=== PATIENT | male | born 1960 | race Caucasian/White ===

== ENCOUNTER 2016-07-09 09:08 | Inpatient (IN) | payer BC ==
--- NOTE | 2016-07-09 09:36 | PDOC ---
History of Present Illness - General Chief Complaint: Respiratory Stated Complaint: COUGH&COLD SX, LF KNEE, TIFFANY ANKLE PAIN Time Seen by Provider: 07/09/16 09:19 History Source: Patient Exam Limitations: No Limitations - History of Present Illness Initial Comments: 55 yo M hx kidney stones, possibly gout (patient is uncertain) presents with B/ L ankle pain and L knee pain. He had a recent URI with cough, fever, and congestion, and noted that he started to get R ankle pain as he was recovering. He was limping to compensate for the pain, then developed pain on the left side , first in the ankle, now in the knee. He notes swelling and tenderness to both the ankle and the knee, with some redness in the ankle and big toe on the left side. Past History - Past Medical History Allergies/Adverse Reactions: Allergies Allergy/AdvReac Type Severity Reaction Status Date / Time No Known Allergies Allergy Verified 07/09/16 09:10 Home Medications: Ambulatory Orders NK [No Known Home Medication] 07/09/16 Disorders: Yes (KIDNEY STONES) Kidney Stones: Yes - Surgical History Orthopedic Surgery: Yes (BILATERAL KNEES) - Psycho/Social/Smoking Cessation Hx Anxiety: No Suicidal Ideation: No Smoking Status: Yes Smoking History: Former smoker Have you smoked in the past 12 months: Yes Number of Cigarettes Smoked Daily: 1 Information on smoking cessation initiated: Yes 'Breaking Loose' booklet given: 07/09/16 Hx Alcohol Use: Yes (occasional) Substance Use Type: None Hx Substance Use Treatment: No Review of Systems - Review of Systems Able to Perform ROS?: Yes Comments:: GENERAL/CONSTITUTIONAL: No fever or chills. No weakness. HEAD, EYES, EARS, NOSE AND THROAT: No change in vision. No ear pain or discharge. No sore throat. CARDIOVASCULAR: No chest pain or shortness of breath. RESPIRATORY: No cough, wheezing, or hemoptysis. GASTROINTESTINAL: No nausea, vomiting, diarrhea or constipation. GENITOURINARY: No dysuria, frequency, or change in urination. MUSCULOSKELETAL: No muscle swelling or pain. No neck or back pain. +Pain and swelling to both ankles and the L knee. SKIN: No rash NEUROLOGIC: No headache, vertigo, loss of consciousness, or change in strength/ sensation. ENDOCRINE: No increased thirst. No abnormal weight change. HEMATOLOGIC/LYMPHATIC: No anemia, easy bleeding, or history of blood clots. ALLERGIC/IMMUNOLOGIC: No hives or skin allergy. *Physical Exam - Vital Signs Last Vital Signs Temp Pulse Resp BP Pulse Ox 99.4 F 88 16 133/75 96 07/09/16 09:08 07/09/16 09:08 07/09/16 09:08 07/09/16 09:08 07/09/16 09:08 - Physical Exam Comments: GENERAL: Awake, alert, and fully oriented, in no acute distress HEAD: No signs of trauma EYES: PERRLA, EOMI, sclera anicteric, conjunctiva clear ENT: Auricles normal inspection, hearing grossly normal, nares patent, oropharynx clear without exudates. Moist mucosa NECK: Normal ROM, supple, no lymphadenopathy, JVD, or masses LUNGS: Breath sounds equal, clear to auscultation bilaterally. No wheezes, and no crackles HEART: Regular rate and rhythm, normal S1 and S2, no murmurs, rubs or gallops ABDOMEN: Soft, nontender, normoactive bowel sounds. No guarding, no rebound. No masses EXTREMITIES: L ankle and dorsal foot with nonpitting edema. +L ankle effusion. + Erythema over the L 1st MTP joint. R ankle swelling with trace effusion. L knee with mod effusion, diffuse tenderness, no erythema, no warmth. Remainder of extremities with normal range of motion. No clubbing or cyanosis. No cords. NEUROLOGICAL: Cranial nerves II through XII grossly intact. Normal speech. Motor and sensation intact. +Antalgic gait. SKIN: Warm, Dry, normal turgor, no rashes or lesions noted. Procedures - Arthrocentesis Indication: Crystals (Gout/Psuedogout, Reduce Pain, Steriod Injection Arthrocentesis Site: left: knee Flexion: <20 degrees Betadine Prep: Yes Sterile Dressing Applied: Yes Dry Tap: No Fluid Color: Straw colored (25 mL blood-tinged, straw-colored fluid) Anesthesia: other (2 mL 1% lidocaine and 40 mg kenalog) Needle Size (guage): 18g Complications: No Heart Score/ECG Review - ECG Impressions Comment:: EKG read 14:01- NSR 74 bpm, incomplete RBBB, +LVH Medical Decision Making - Medical Decision Making 07/09/16 11:07 Arthrocentesis- Area was prepped with betadine, then a sterile drape was placed. Area was anesthetized locally using 1% lidocaine. After the area was sufficiently anesthetized, an 18G needle was used to access the joint space from a medial approach. Fluid aspirated successfully from the L knee- 25 mL total. Fluid was viscous, blood-tinged, straw-colored fluid. Sent to lab for analysis. 07/09/16 13:38 Arthrocentesis results d/w Dr. Valenzuela. I will admit for IV abx, washout. 07/09/16 13:[address] Garcia, who covers Dr. Uribe. He admits to hospitalist at [facility]. *DC/Admit/Observation/Transfer Diagnosis at time of Disposition: Knee pain Qualifiers: Laterality: left Chronicity: acute Qualified Code(s): M25.562 - Pain in left knee Septic joint of left knee joint Qualifiers: Septic arthritis organism: due to unspecified organism Qualified Code(s): M00.9 - Pyogenic arthritis, unspecified - Discharge Dispostion Condition at time of disposition: Stable Admit: Yes - Referrals Referrals: Oseas Uribe [Primary Care Provider] -
[2016-07-09] MEDS ORDERED: predniSONE 20 MG TABLET (UD) PO ONE (09:38)
[2016-07-09] MEDS ORDERED: IBUPROFEN 600 MG TABLET (FP) PO ONE ×2 (09:38→09:40)
[2016-07-09] MEDS ORDERED: predniSONE 20 MG TABLET (UD) ONE (09:41)
[2016-07-09] MEDS ORDERED: TRIAMCINOLONE HEXACETONIDE 20 MG/1 ML VIAL IAR ONE (10:58)
[2016-07-09] MEDS ORDERED: LIDOCAINE HCL 1%, 10 MG/ML (50 mL VIAL) SQ ONE (11:01)
[2016-07-09] MEDS ORDERED: LIDOCAINE HCL 1%, 10 MG/ML (20ML VIAL) ONE (11:03)
[2016-07-09 13:32] LABS: GLUCOSE,SYNOVIAL FLUID 8 mg/dL
[2016-07-09] MEDS ORDERED: VANCOMYCIN 1,000 MG in DEXTROSE 5%-WATER - 250 ML IVPB ONE (13:37)
[2016-07-09] MEDS ORDERED: CEFTRIAXONE 2 GM in DEXTROSE 5%-WATER - 100 ML IVPB ONE (13:37)
[2016-07-09 13:54] LABS: SYNOVIAL FLUID LYMPHOCYTES 2 %; SYNOVIAL FLUID NEUTROPHILS 98 %
[2016-07-09 13:55] LABS: CRYSTALS,SYNOVIAL FLUID RARE
[2016-07-09] MEDS ORDERED: VANCOMYCIN 1,000 MG VIAL (RESTRICTED TO ID ONLY) ONE (14:11)
[2016-07-09] MEDS ORDERED: cefTRIAXone SODIUM 1 GM VIAL ONE ×2 (14:11→14:19)
[2016-07-09 14:33] LABS: BASOPHIL 1.6 % (0-2.0); MCH 28.9 pg (25.7-33.7); MEAN CELL VOLUME 85.1 fl (80-96); MEAN PLT VOLUME 9.5 fl (7.5-11.1); PLATELET COUNT 286 K/MM3 (134-434); RDW 12.2 % (11.9-15.9); WHITE BLOOD COUNT 13.9 K/mm3 (4.0-10.0)
[2016-07-09 14:38] LABS: INR 1.23 (0.82-1.09); PROTHROMBIN TIME (PATIENT) 13.7 SEC (10.2-13.0)
[2016-07-09 14:42] LABS: ALBUMIN 3.5 g/dl (3.5-5.0); ALK PHOS 48 U/L (32-92); ANION GAP 10 (8-16); BILIRUBIN,TOTAL 1.2 mg/dl (0.2-1.0); CALCIUM 9.3 mg/dl (8.4-10.2); CO2 28 mmol/L (22-28); GLUCOSE,RANDOM 151 mg/dl (74-106); SGOT/AST 17 U/L (10-42); SGPT/ALT 18 U/L (10-40); TOT PROT 7.4 g/dl (6.4-8.3); URIC ACID 8.5 mg/dl (2.6-7.2)
[2016-07-09] MEDS ORDERED: ONDANSETRON 4 MG/2 ML VIAL IVPB PRN (15:20)
[2016-07-09] MEDS ORDERED: ACETAMINOPHEN 325 MG TABLET (FP) PO PRN (15:20)
[2016-07-09 15:53] LABS: TOTAL PROTEIN,SYNOVIAL FLUID 5 gm/dL
[2016-07-09 16:31] VITALS: BMI 28.9
--- NOTE | 2016-07-09 18:08 | PN ---
Progress Note (short form) - Note Progress Note: ID Consult dictated Septic arthritis v. gout L knee Possible polyarticular arthritis Await synovial fluid c/s Check ESR CRP PAPO RF Lyme Parvovirus Empiric vanco/zosyn
[2016-07-09] MEDS: VANCOMYCIN 1 GRAM (PRE-DOCKED) 250 ML IVPB SCH (18:15)
[2016-07-09] MEDS ORDERED: PIPERACILLIN/TAZOB 3.375 GM 50 ML IVPB ONE (18:22)
[2016-07-09] MEDS: PIPERACILLIN/TAZOB 3.375 GM 50 ML IVPB SCH (18:28)
--- NOTE | 2016-07-09 21:19 | HP ---
CHIEF COMPLAINT: L-knee pain, swelling, Bilateral ankle pain PCP: Dr. Delio Uribe HISTORY OF PRESENT ILLNESS: This is a 55 y/o male with a past medical history Renal Colic, Gout. Who presents to the emergency department with pain to bilateral ankles, limited mobility, L-knee pain and swelling x 1-2 weeks. Patient reports recent Flu-like symptoms x several days- resolved. Patient reports "rolling" his R-ankle, ignoring it. He then reports noting that his left foot and left knee was swollen , limited ROM/mobility, with erythema to his left foot. Patient reports he was "sweating" more at night, unsure if he had a temp. Patient denies SOB, dizziness , CP, AP, N/V/D, constipation, dysuria. 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[employer]) Family History: Father: Cardiac, Rheumatic Fever, Stroke, age 59 Mother: No medical conditions, alive Allergies No Known Allergies Allergy (Verified 07/09/16 09:10) HOME MEDICATIONS: Home Medications Medication Instructions Recorded NK [No Known Home Medication] 07/09/16 REVIEW OF SYSTEMS CONSTITUTIONAL: diaphoresis, loss of appetite Absent: fever, chills, generalized weakness, malaise, weight change HEENT: Absent: rhinorrhea, nasal congestion, throat pain, throat swelling, difficulty swallowing, mouth swelling, ear pain, eye pain, visual changes CARDIOVASCULAR: peripheral edema Absent: chest pain, syncope, palpitations, irregular heart rate, lightheadedness RESPIRATORY: Absent: cough, shortness of breath, dyspnea with exertion, orthopnea, wheezing, stridor, hemoptysis GASTROINTESTINAL: Absent: abdominal pain, abdominal distension, nausea, vomiting, diarrhea, constipation, melena, hematochezia GENITOURINARY: Absent: dysuria, frequency, urgency, hesitancy, hematuria, flank pain, genital pain MUSCULOSKELETAL: myalgia, arthralgia, joint swelling Absent: back pain, neck pain SKIN: Absent: rash, itching, pallor HEMATOLOGIC/IMMUNOLOGIC: Absent: easy bleeding, easy bruising, lymphadenopathy, frequent infections ENDOCRINE: Absent: unexplained weight gain, unexplained weight loss, heat intolerance, cold intolerance NEUROLOGIC: Absent: headache, focal weakness or paresthesias, dizziness, unsteady gait, seizure, mental status changes, bladder or bowel incontinence PSYCHIATRIC: Absent: anxiety, depression, suicidal or homicidal ideation, hallucinations. PHYSICAL EXAMINATION Vital Signs - 24 hr 07/09/16 07/09/16 15:30 20:46 Temperature 97.4 F L Pulse Rate [ 67 Left Apical] Respiratory 18 18 Rate Blood Pressure 113/62 [Left Arm] O2 Sat by Pulse 99 99 Oximetry (%) GENERAL: Awake, alert, and fully oriented, in no acute distress. HEAD: Normal with no signs of trauma. EYES: Pupils equal, round and reactive to light, extraocular movements intact, sclera anicteric, conjunctiva clear. No lid lag. EARS, NOSE, THROAT: Ears normal, nares patent, oropharynx clear without exudates. Moist mucous membranes. NECK: Normal range of motion, supple without lymphadenopathy, JVD, or masses. LUNGS: Breath sounds equal, clear to auscultation bilaterally. No wheezes, and no crackles. No accessory muscle use. HEART: Regular rate and rhythm, normal S1 and S2 without murmur, rub or gallop. ABDOMEN: Soft, nontender, not distended, normoactive bowel sounds, no guarding, no rebound, no masses. No hepatomegaly or splenomegaly. MUSCULOSKELETAL: Normal range of motion at all joints. No bony deformities. + tenderness left knee, left ankle. No CVA tenderness. UPPER EXTREMITIES: 2+ pulses, warm, well-perfused. No cyanosis. No clubbing. Cap refill <2 seconds. No peripheral edema. LOWER EXTREMITIES: 2+ pulses, warm, well-perfused. No calf tenderness. +trace peripheral edema to LLE. NEUROLOGICAL: Cranial nerves II-XII intact. Normal speech. Gait not observed. PSYCHIATRIC: Cooperative. Good eye contact. Appropriate mood and affect. SKIN: Warm, dry, normal turgor, +erythema to left foot. No rashes or lesions noted. Laboratory Results - last 24 hr 07/09/16 07/09/16 07/09/16 11:20 11:20 14:00 WBC 13.9 H RBC 5.12 Hgb 14.8 Hct 43.6 MCV 85.1 MCHC 34.0 RDW 12.2 Plt Count 286 MPV 9.5 Neutrophils % 87.0 H Lymphocytes % 7.1 L Monocytes % 4.3 Eosinophils % 0.0 Basophils % 1.6 INR Sodium Potassium Chloride Carbon Dioxide Anion Gap BUN Creatinine Creat Clearance w eGFR Random Glucose Uric Acid Calcium Total Bilirubin AST ALT Alkaline Phosphatase Total Protein Albumin Synovial Source Left knee Synovial WBC 97,756 Synovial RBC 37,568 Synovial Neutrophils 98 Synovial Lymphocytes 2 Synovial Crystals Rare Synovial Glucose 8 Synovial Total Protein 5 Synovial LDH 816 Synovial Amylase 34 Blood Type Antibody Screen 07/09/16 07/09/16 07/09/16 14:00 14:00 14:00 WBC RBC Hgb Hct MCV MCHC RDW Plt Count MPV Neutrophils % Lymphocytes % Monocytes % Eosinophils % Basophils % INR 1.23 H Sodium 133 L Potassium 3.9 Chloride 95 L Carbon Dioxide 28 Anion Gap 10 BUN 24 H Creatinine 1.0 Creat Clearance w eGFR > 60 Random Glucose 151 H Uric Acid 8.5 H Calcium 9.3 Total Bilirubin 1.2 H AST 17 ALT 18 Alkaline Phosphatase 48 Total Protein 7.4 Albumin 3.5 Synovial Source Synovial WBC Synovial RBC Synovial Neutrophils Synovial Lymphocytes Synovial Crystals Synovial Glucose Synovial Total Protein Synovial LDH Synovial Amylase Blood Type A POSITIVE Antibody Screen Negative 07/09/16 14:10 WBC RBC Hgb Hct MCV MCHC RDW Plt Count MPV Neutrophils % Lymphocytes % Monocytes % Eosinophils % Basophils % INR Sodium Potassium Chloride Carbon Dioxide Anion Gap BUN Creatinine Creat Clearance w eGFR Random Glucose Uric Acid Calcium Total Bilirubin AST ALT Alkaline Phosphatase Total Protein Albumin Synovial Source Synovial WBC Synovial RBC Synovial Neutrophils Synovial Lymphocytes Synovial Crystals Synovial Glucose Synovial Total Protein Synovial LDH Synovial Amylase Blood Type A POSITIVE Antibody Screen ASSESSMENT/PLAN: This is a 55 y/o male PMHx of Renal Colic, Gout. Who presents to the ED with swollen and pain to B/L Ankle, L- Knee and L- Foot. Admitted for Septic Arthritis of Left Knee for further evaluation of their emergent condition. Plan: 1. Septic Arthritis vs Gout L Knee - Likely secondary to recent URI - Arthrocentesis L- knee showed- +WBC/RBCs - WBC 13.9 with Neutrophils 87 - Uric Acid 8.5 - Blood Cultures-pending - Rocephin given in ED - ID following, started on Vanco/Zosyn - Continue Vancomycin/Zosyn - Ortho following- OR in am for washout - NPO after midnight - IVF - Monitor vitals, CBC - Tylenol prn - Consider PT 2. Renal Colic - Hx Renal Stents 3. FEN - NS@100cc/hr - Replete lytes prn - NPO 4. DVT Prophylaxis - OOB - SCDs Code Status: Full Code Problem List - Problem (1) Septic joint of left knee joint Code(s): M00.9 - PYOGENIC ARTHRITIS, UNSPECIFIED Qualifiers: Septic arthritis organism: due to unspecified organism Qualified Code(s ): M00.9 - Pyogenic arthritis, unspecified (2) Knee pain Code(s): M25.569 - PAIN IN UNSPECIFIED KNEE Qualifiers: Laterality: left Chronicity: acute Qualified Code(s): M25.562 - Pain in left knee (3) History of renal colic Code(s): Z87.448 - PERSONAL HISTORY OF OTHER DISEASES OF URINARY SYSTEM (4) DVT prophylaxis Code(s): LAJ2899 - Visit type - Emergency Visit Emergency Visit: Yes ED Registration Date: 07/09/16 Care time: The patient presented to the Emergency Department on the above date and was hospitalized for further evaluation of their emergent condition. - New Patient This patient is new to me today: Yes Date on this admission: 07/09/16 - Critical Care Critical Care patient: No
[2016-07-10] MEDS: SODIUM CHLORIDE 1,000 ML IV SCH ×2 (00:52→18:07)
[2016-07-10] MEDS: PIPERACILLIN/TAZOB 3.375 GM 50 ML IVPB SCH ×4 (01:51→18:06)
[2016-07-10] MEDS: VANCOMYCIN 1 GRAM (PRE-DOCKED) 250 ML IVPB SCH ×2 (02:45→16:49)
--- NOTE | 2016-07-10 06:26 | CONS ---
DATE OF CONSULTATION: 07/09/2016 HISTORY OF PRESENT ILLNESS: The patient is a 55-year-old male with history of nephrolithiasis and history of gouty arthritis, evaluated for possible septic arthritis. Patient reports that several days ago, he had twisted his right ankle and had experienced some pain. He reports favoring his other leg. He subsequently developed swelling of the left ankle and had noted some erythema. Then, 24 hours prior to admission, he developed worsening left knee swelling and pain to the point that he was unable to ambulate. He presented to the emergency room where an arthrocentesis was performed and revealed many white blood cells. He denied any traumatic injury to his knee, no associated fever or chills. Of note, he states that his 3-year-old son at home had a recent febrile illness and had a rash. He reports his son was diagnosed with a strep infection. Patient gives a history of having gouty arthritis in the past which affected his right great toe. He denied any recent acute flares. He denies any recent febrile illness or respiratory tract symptoms. No history of tick bites. He denies history of connective tissue disorder. PAST MEDICAL HISTORY: Positive for nephrolithiasis and history of gouty arthritis. ALLERGIES: No known allergies. 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 He denies any injury. A former smoker, occasional EtOH. SYSTEMS REVIEW: Neurologic: No loss of consciousness, seizure activity, or focal weakness. Cardiac: Negative for chest pain or palpitations. Respiratory: Negative for cough or sputum production. Gastrointestinal: Negative for vomiting or diarrhea. Genitourinary: Negative for urinary tract infection. LABORATORY DATA: White count 13.9, 87 neutrophils, 7 lymphocytes, 4 monocytes, hematocrit 43.6, platelet count 286. BUN 84, creatinine 1.0. Arthrocentesis yielded synovial fluid which was described as straw-colored. White blood cell count 97,765, 98 neutrophils, 2 lymphocytes, red cells 37,568, crystals rare, glucose 8, protein 5, LDH 816. Gram stain and culture pending. Blood cultures are pending. X-ray of the foot showed degenerative changes, no acute pathology. X-ray of the knee showed suprapatellar effusion. PHYSICAL EXAMINATION: General: He is awake and alert. He is not acutely toxic-appearing. Vital signs: Temperature 97.4, blood pressure 113/62, pulse 67 and regular, respirations 18 per minute. HEENT: Sclerae anicteric. Heart: Heart sounds S1, S2. Lungs: Clear. Abdomen: Soft and nontender. Extremities: Positive for right knee effusion. No erythema or warmth. There is swelling of the left ankle and left foot with erythema present over the dorsal aspect of the toes. IMPRESSION: 1. Septic arthritis versus gouty arthritis, left knee. 2. Possible polyarticular arthritis. Etiology of acute arthritis not clear. There were rare crystals seen on Gram stain. Polyarticular arthritis in the setting of elevated uric acid and history of gout raises strong possibility of acute flare of gout arthritis. However, synovial fluid contained many white cells, predominantly neutrophils, low glucose, high LDH and protein, suggestive of a septic process. Await synovial fluid and blood culture results. Would obtain sedimentation rate, C-reactive protein, Lyme titer, parvovirus titer, PAPO, rheumatoid factor, empiric coverage of possible septic arthritis with vancomycin and Zosyn pending Gram stain and cultures. Would obtain orthopedic evaluation and consider rheumatology evaluation. Further recommendations pending cultures. Will follow. Thank you for the kind referral. CY SWAN M.D. [id number]
[2016-07-10 09:53] LABS: CALCIUM 9.3 mg/dl (8.4-10.2)
[2016-07-10 09:54] LABS: WHITE BLOOD COUNT 12.8 K/mm3 (4.0-10.0)
[2016-07-10 09:55] LABS: MCH 29.1 pg (25.7-33.7); MCHC 33.8 g/dl (32.0-35.9); MEAN CELL VOLUME 86.2 fl (80-96); MEAN PLT VOLUME 9.5 fl (7.5-11.1); NEUTROPHILS 85.8 % (42.8-82.8); PLATELET COUNT 313 K/MM3 (134-434); RDW 12.5 % (11.9-15.9)
--- NOTE | 2016-07-10 10:00 | OP ---
- Note: FULL CONSULTATION DICTATED IMP: GOUT AND SEPTIC ARTHRITIS LEFT KNEE PLAN: ABX, --> OR FOR WASH OUT OF KNEE
--- NOTE | 2016-07-10 10:08 | PN ---
Progress Note, Physician History of Present Illness: Reports significant improvement L knee/ ankle swelling and stiffness No pain on wt bearing No fever/ chills - Current Medication List Current Medications: Active Medications Acetaminophen (Tylenol -) 650 mg PO Q4H PRN PRN Reason: FEVER OR PAIN Sodium Chloride (Normal Saline -) 1,000 mls @ 100 mls/hr IV ASDIR [facility] Last Admin: 07/10/16 00:52 Dose: 100 mls/hr Vancomycin HCl (Vancomycin (Pre-Docked)) 250 mls @ 200 mls/hr IVPB BID@0300, 1500 [facility] Last Admin: 07/10/16 02:45 Dose: 200 mls/hr Piperacillin Sod/Tazobactam Sod (Zosyn 3.375gm Ivpb (Pre-Docked)) 50 mls @ 100 mls/hr IVPB Q8H-IV MARCUS PRN Reason: Protocol Last Admin: 07/10/16 09:14 Dose: 100 mls/hr Ondansetron HCl (Zofran Injection) 4 mg IVPB Q4H PRN PRN Reason: NAUSEA - Objective Vital Signs: Vital Signs Temperature 97.6 F 07/10/16 06:16 Pulse Rate 50 L 07/10/16 06:16 Respiratory Rate 20 07/10/16 06:16 Blood Pressure 117/67 07/10/16 06:16 O2 Sat by Pulse Oximetry (%) 99 07/10/16 06:16 Constitutional: Yes: No Distress Eyes: Yes: Conjunctiva Clear Cardiovascular: Yes: Regular Rate and Rhythm, S1, S2 Respiratory: Yes: CTA Bilaterally Gastrointestinal: Yes: Normal Bowel Sounds, Soft. No: Tenderness Extremities: Yes: Other (+ L knee effusion no erythema/ warmth less L ankle swelling no erythema/ warmth) Labs: CBC, BMP 07/10/16 07:00 07/10/16 07:55 INR, PTT INR 1.23 (0.82-1.09) H 07/09/16 14:00 Assessment/Plan Gouty v. septic arthritis L knee Polyarticular arthritis Await c/s, serologies For washout today Continue empiric zosyn/ vancomycin Would consider rheumatology evaluation in light of polyarticular nature of arthritis and possibility of gout/ pseudogout
--- NOTE | 2016-07-10 12:03 | PN ---
[id number] his left ankle, pt denies any tactile fever last night OBJECTIVE: patient is a 55 y/o male with a past medical history Renal Colic and Gout. patient was admitted from the emergency department for left knee septic arthritis. Vital Signs Period Temp Pulse Resp BP Sys/Luciano Pulse Ox Last 24 Hr 97.4 F-97.6 F 50-67 18-20 112-117/62-67 99-99 GENERAL: The patient is awake, alert, and fully oriented, in no acute distress. HEAD: Normal with no signs of trauma. EYES: PERRL, extraocular movements intact, sclera anicteric, conjunctiva clear. No ptosis. ENT: Ears normal, nares patent, oropharynx clear without exudates, moist mucous membranes. NECK: Trachea midline, full range of motion, supple. LUNGS: Breath sounds equal, clear to auscultation bilaterally, no wheezes, no crackles, no accessory muscle use. HEART: Regular rate and rhythm, S1, S2 without murmur, rub or gallop. ABDOMEN: Soft, nontender, nondistended, normoactive bowel sounds, no guarding, no rebound, no hepatosplenomegaly, no masses. EXTREMITIES: 2+ pulses, warm, well-perfused, no edema. LEFT LOWER EXTREMITY: warm, minimal erythema, no induration, minimal pain upon flexion and extension of left knee, less than 3 Second capillary refill, +4 pedal pulse, trace edema noted NEUROLOGICAL: Cranial nerves II through XII grossly intact. Normal speech, gait not observed. PSYCH: Normal mood, normal affect. SKIN: Warm, dry, normal turgor, no rashes or lesions noted Laboratory Results - last 24 hr 07/10/16 07/10/16 07/10/16 07:00 07:00 07:55 WBC 12.8 H RBC 5.03 Hgb 14.6 Hct 43.3 MCV 86.2 MCHC 33.8 RDW 12.5 Plt Count 313 MPV 9.5 Neutrophils % 85.8 H Lymphocytes % 8.3 Monocytes % 5.9 Eosinophils % 0.0 Basophils % 0.0 ESR 80 H Sodium 136 Potassium 3.9 Chloride 99 Carbon Dioxide 28 Anion Gap 9 BUN 26 H Creatinine 1.0 Random Glucose 106 D Calcium 9.3 Active Medications Generic Name Dose Route Start Last Admin Trade Name Freq PRN Reason Stop Dose Admin Acetaminophen 650 mg 03/06/17 15:20 Tylenol - PO Q4H PRN FEVER OR PAIN Sodium Chloride 1,000 mls @ 100 mls/hr 07/09/16 15:30 07/10/16 00:52 Normal Saline - IV 100 mls/hr ASDIR MARCUS Administration Vancomycin HCl 250 mls @ 200 mls/hr 07/10/16 03:00 07/10/16 02:45 Vancomycin (Pre-Docked) IVPB 200 mls/hr BID@0300,1500 MARCUS Administration Piperacillin Sod/Tazobactam Sod 50 mls @ 100 mls/hr 07/09/16 18:30 07/10/16 09: 14 Zosyn 3.375gm Ivpb (Pre-Docked) IVPB 100 mls/hr Q8H-IV MARCUS Administration Protocol Ondansetron HCl 4 mg 07/09/16 15:20 Zofran Injection IVPB Q4H PRN NAUSEA Microbiology 07/09/16 11:20 Synovial Fluid - Knee Gram Stain - Final 07/09/16 11:20 Synovial Fluid - Knee Body Fluid Culture - Preliminary NO AEROBIC GROWTH, 24 HRS ASSESSMENT/PLAN: 1. ID: Septic Arthritis - f/u blood cultures, +WBC noted to synovial episode, pending final synovial fluid culture pending - continue vancomycin and zosyn as per ID (Sanya) - orthopedist consulted, Dr Valenzuela, pt's private orthopedist, pending OR today for left knee washout - leukocytosis trending downward 2) renal colic pmh of renal stents, no acute excerbation at this time 3. FEN - NS@100cc/hr - Replete lytes prn - NPO 4. DVT Prophylaxis - OOB - SCDs dispo: requires inpatient care Code Status: Full Code Visit type - Emergency Visit Emergency Visit: Yes ED Registration Date: 07/09/16 Care time: The patient presented to the Emergency Department on the above date and was hospitalized for further evaluation of their emergent condition. - New Patient This patient is new to me today: Yes Date on this admission: 07/10/16 - Critical Care Critical Care patient: No - Discharge Referral Referred to [facility] Med P.C.: No
[2016-07-10] MEDS ORDERED: LIDOCAINE 1%-EPI 1:100,000 30 ML MDV IJ ONE (13:34)
[2016-07-10] MEDS ORDERED: oxyCODONE HCL 5 MG TABLET PO PRN (13:48)
[2016-07-10] MEDS ORDERED: PROPOFOL 20 ML ONE (13:56)
[2016-07-10] MEDS ORDERED: BUPIVACAINE HCL/PF 0.5% (5MG/ML) 10 ML VIAL ONE (14:03)
[2016-07-10] MEDS ORDERED: ONDANSETRON 4 MG/2 ML VIAL ONE (14:28)
[2016-07-10] MEDS ORDERED: DEXAMETHASONE SOD PHOSPHATE 4 MG/1 ML VIAL ONE (14:28)
[2016-07-10] MEDS ORDERED: LIDOCAINE 1%/EPI 1:100000 (50 ML MULTI DOSE VIAL) PNB ONE (14:41)
[2016-07-10] MEDS ORDERED: BUPIVACAINE HCL/PF 0.5% (5MG/ML) 10 ML VIAL IJ ONE (14:43)
--- NOTE | 2016-07-10 15:06 | OP ---
Operative Note - Note: Operative Date: 07/10/16 Pre-Operative Diagnosis: septic left knee Post-Operative Diagnosis: Other (+ medial and lateral meniscus tear and DJD) Surgeon: Dave Valenzuela Anesthesia: General Estimated Blood Loss (mls): 0 Operative Report Dictated: Yes
[2016-07-10] MEDS ORDERED: LACTATED RINGERS SOLUTION 1,000 ML IV SCH (15:15)
[2016-07-10] MEDS ORDERED: KETOROLAC TROMETHAMINE 30 MG/1 ML VIAL ONE (18:23)
[2016-07-10] MEDS ORDERED: HYDROmorphone HCL CARPU-JECT 1 MG/1 ML DISP.SYRIN ONE (18:28)
[2016-07-10] MEDS ORDERED: oxyCODONE HCL 5 MG TABLET ONE ×2 (18:29→18:31)
[2016-07-10] MEDS ORDERED: PROMETHAZINE HCL 25 MG/1 ML VIAL ONE (19:04)
[2016-07-11] MEDS: PIPERACILLIN/TAZOB 3.375 GM 50 ML IVPB SCH ×3 (02:00→17:11)
[2016-07-11] MEDS: VANCOMYCIN 1 GRAM (PRE-DOCKED) 250 ML IVPB SCH ×2 (03:16→15:27)
--- NOTE | 2016-07-11 09:54 | PN ---
Progress Note, Physician History of Present Illness: Awake, alert S/P washout L knee No c/o knee pain No c/o fever/ chills Synovial c/s prelim no growth - Current Medication List Current Medications: Active Medications Acetaminophen (Tylenol -) 650 mg PO Q4H PRN PRN Reason: FEVER OR PAIN Fentanyl (Sublimaze Injection -) 50 mcg IVPUSH [id number] PRN PRN Reason: PAIN Stop: 07/13/16 15:33 Last Admin: 07/10/16 15:55 Dose: 50 mcg Sodium Chloride (Normal Saline -) 1,000 mls @ 100 mls/hr IV ASDIR MARCUS Last Admin: 07/10/16 18:07 Dose: Not Given Vancomycin HCl (Vancomycin (Pre-Docked)) 250 mls @ 200 mls/hr IVPB BID@0300, 1500 MARCUS Last Admin: 07/11/16 03:16 Dose: 200 mls/hr Piperacillin Sod/Tazobactam Sod (Zosyn 3.375gm Ivpb (Pre-Docked)) 50 mls @ 100 mls/hr IVPB Q8H-IV MARCUS PRN Reason: Protocol Last Admin: 07/11/16 02:00 Dose: 100 mls/hr Lactated Ringer's (Lactated Ringers Solution) 1,000 mls @ 75 mls/hr IV ASDIR MARCUS Last Admin: 07/10/16 18:07 Dose: Not Given Ondansetron HCl (Zofran Injection) 4 mg IVPB Q4H PRN PRN Reason: NAUSEA Oxycodone HCl (Roxicodone -) 5 mg PO Q4H PRN PRN Reason: PAIN - Objective Vital Signs: Vital Signs Temperature 98.6 F 07/11/16 05:09 Pulse Rate 50 L 07/11/16 05:09 Respiratory Rate 18 07/11/16 05:09 Blood Pressure 115/59 07/11/16 05:09 O2 Sat by Pulse Oximetry (%) 99 07/11/16 05:09 Constitutional: Yes: No Distress Eyes: Yes: Conjunctiva Clear Cardiovascular: Yes: Regular Rate and Rhythm, S1, S2 Respiratory: Yes: CTA Bilaterally Gastrointestinal: Yes: Normal Bowel Sounds, Soft. No: Tenderness Extremities: Yes: Other (L knee swelling L ankle/ foot swelling no warmth / erythema / tenderness) Labs: CBC, BMP 07/10/16 07:00 07/10/16 07:55 INR, PTT INR 1.23 (0.82-1.09) H 07/09/16 14:00 Assessment/Plan Gouty v. septic arthritis L knee Polyarticular arthritis Await c/s, serologies Continue empiric zosyn/ vancomycin Would consider rheumatology evaluation in light of polyarticular nature of arthritis and possibility of gout/ pseudogout
--- NOTE | 2016-07-11 11:00 | PN ---
[id number] chest pain or shortness of breath. OBJECTIVE: patient is a 55-year-old male, with a past medical history of hypothyroidism. Patient was admitted from the emergency department for left knee septic arthritis. Vital Signs Period Temp Pulse Resp BP Sys/Luciano Pulse Ox Last 24 Hr 97.7 F-98.6 F 48-65 15-19 112-128/56-88 94-99 GENERAL: The patient is awake, alert, and fully oriented, in no acute distress. HEAD: Normal with no signs of trauma. EYES: PERRL, extraocular movements intact, sclera anicteric, conjunctiva clear. No ptosis. ENT: Ears normal, nares patent, oropharynx clear without exudates, moist mucous membranes. NECK: Trachea midline, full range of motion, supple. LUNGS: Breath sounds equal, clear to auscultation bilaterally, no wheezes, no crackles, no accessory muscle use. HEART: Regular rate and rhythm, S1, S2 without murmur, rub or gallop. ABDOMEN: Soft, nontender, nondistended, normoactive bowel sounds, no guarding, no rebound, no hepatosplenomegaly, no masses. EXTREMITIES: 2+ pulses, warm, well-perfused, no edema. left lower extremity: surgical dressing in place clean dry and intact NEUROLOGICAL: Cranial nerves II through XII grossly intact. Normal speech, gait not observed. PSYCH: Normal mood, normal affect. SKIN: Warm, dry, normal turgor, no rashes or lesions noted Laboratory Results - last 24 hr 07/10/16 07/10/16 07:00 07:55 ESR 80 H C-Reactive Protein 23.8 H CBC WBC 12.8 K/mm3 (4.0-10.0) H 07/10/16 07:00 RBC 5.03 M/mm3 (4.00-5.60) 07/10/16 07:00 Hgb 14.6 GM/dl (11.7-16.9) 07/10/16 07:00 Hct 43.3 % (35.4-49) 07/10/16 07:00 MCV 86.2 fl (80-96) 07/10/16 07:00 MCHC 33.8 g/dl (32.0-35.9) 07/10/16 07:00 RDW 12.5 % (11.9-15.9) 07/10/16 07:00 Plt Count 313 K/MM3 (134-434) 07/10/16 07:00 MPV 9.5 fl (7.5-11.1) 07/10/16 07:00 Neutrophils % 85.8 % (42.8-82.8) H 07/10/16 07:00 Lymphocytes % 8.3 % (8-40) 07/10/16 07:00 Monocytes % 5.9 % (3.8-10.2) 07/10/16 07:00 Eosinophils % 0.0 % (0-4.5) 07/10/16 07:00 Basophils % 0.0 % (0-2.0) 07/10/16 07:00 ESR 80 mm/hr (0-20) H 07/10/16 07:00 CMP Sodium 136 mmol/L (136-145) 07/10/16 07:55 Potassium 3.9 mmol/L (3.5-5.1) 07/10/16 07:55 Chloride 99 mmol/L (98-107) 07/10/16 07:55 Carbon Dioxide 28 mmol/L (22-28) 07/10/16 07:55 Anion Gap 9 (8-16) 07/10/16 07:55 BUN 26 mg/dl (7-18) H 07/10/16 07:55 Creatinine 1.0 mg/dl (0.6-1.3) 07/10/16 07:55 Creat Clearance w eGFR > 60 (>60) 07/09/16 14:00 Random Glucose 106 mg/dl (74-106) D 07/10/16 07:55 Uric Acid 8.5 mg/dl (2.6-7.2) H 07/09/16 14:00 Calcium 9.3 mg/dl (8.4-10.2) 07/10/16 07:55 Total Bilirubin 1.2 mg/dl (0.2-1.0) H 07/09/16 14:00 AST 17 U/L (10-42) 07/09/16 14:00 ALT 18 U/L (10-40) 07/09/16 14:00 Alkaline Phosphatase 48 U/L (32-92) 07/09/16 14:00 C-Reactive Protein 23.8 MG/DL (0.00-0.3) H 07/10/16 07:55 Total Protein 7.4 g/dl (6.4-8.3) 07/09/16 14:00 Albumin 3.5 g/dl (3.5-5.0) 07/09/16 14:00 Active Medications Generic Name Dose Route Start Last Admin Trade Name Freq PRN Reason Stop Dose Admin Acetaminophen 650 mg 07/09/16 15:20 Tylenol - PO Q4H PRN FEVER OR PAIN Fentanyl 50 mcg 07/10/16 15:32 07/10/16 15:55 Sublimaze Injection - IVPUSH 07/13/16 15:33 50 mcg [id number] PRN Administration PAIN Sodium Chloride 1,000 mls @ 100 mls/hr 07/09/16 15:30 07/10/16 18:07 Normal Saline - IV Not Given ASDIR MARCUS Vancomycin HCl 250 mls @ 200 mls/hr 07/10/16 03:00 07/11/16 03:16 Vancomycin (Pre-Docked) IVPB 200 mls/hr BID@0300,1500 MARCUS Administration Piperacillin Sod/Tazobactam Sod 50 mls @ 100 mls/hr 07/09/16 18:30 07/11/16 10: 38 Zosyn 3.375gm Ivpb (Pre-Docked) IVPB 100 mls/hr Q8H-IV MARCUS Administration Protocol Lactated Ringer's 1,000 mls @ 75 mls/hr 07/10/16 15:15 07/10/16 18:07 Lactated Ringers Solution IV Not Given ASDIR MARCUS Ondansetron HCl 4 mg 07/09/16 15:20 Zofran Injection IVPB Q4H PRN NAUSEA Oxycodone HCl 5 mg 07/10/16 13:48 Roxicodone - PO Q4H PRN PAIN Microbiology 07/09/16 11:20 Synovial Fluid - Knee Gram Stain - Final 07/09/16 11:20 Synovial Fluid - Knee Body Fluid Culture - Preliminary NO AEROBIC GROWTH, 24 HRS 07/09/16 11:20 Synovial Fluid - Knee Anaerobic Culture - Final NO ANAEROBES WERE ISOLATED 07/09/16 14:15 Blood - Peripheral Venous Blood Culture - Preliminary NO GROWTH OBTAINED AFTER 24 HOURS, INCUBATION TO CONTINUE FOR 4 DAYS. 07/09/16 14:00 Blood - Peripheral Venous Blood Culture - Preliminary NO GROWTH OBTAINED AFTER 24 HOURS, INCUBATION TO CONTINUE FOR 4 DAYS. ASSESSMENT/PLAN: 1. ID: Septic Arthritis--> s/p left knee arthroscopy with washout pod #1 -synovial fluid culturesno growth preliminary, continue empiric vancomycin and Zosyn patient followed by infectious disease Dr. Segundo - continue vancomycin and zosyn as per ID (Sanya) - orthopedist consulted, Dr Vlaenzuela, pt's private orthopedist - leukocytosis noted, May be reactive likely secondary to OR 2) renal colic pmh of renal stents, no acute excerbation at this time 3. FEN - regular diet - Replete lytes prn 4. DVT Prophylaxis - OOB - SCDs dispo: requires inpatient care Code Status: Full Code Visit type - Emergency Visit Emergency Visit: Yes ED Registration Date: 07/09/16 Care time: The patient presented to the Emergency Department on the above date and was hospitalized for further evaluation of their emergent condition. - New Patient This patient is new to me today: No - Critical Care Critical Care patient: No - Discharge Referral Referred to [facility] Med P.C.: No
--- NOTE | 2016-07-11 11:52 | PN ---
Progress Note (short form) - Note Progress Note: Ortho Pt seen and examined s/p left knee arthroscopy with washout pod #1 Selected Entries 07/11/16 05:09 Temperature 98.6 F Pulse Rate 50 L Respiratory 18 Rate Blood Pressure 115/59 dressing c/d/i, calf soft, nt rom 5-70, nvi Cultures from OR pending a/p PT wbat ROM as tolerated f/u cultures abx as per ID d/c planning for tomorrow
--- NOTE | 2016-07-11 13:07 | CONS ---
DATE OF CONSULTATION: 07/10/2016 ORTHOPEDIC CONSULTATION/[facility] Patient is a 55-year-old male well known to my service who presented to the [facility] after a few days of multiple joints pain and swelling. It initially started a few days ago in his ankles, then, migrated to his left knee and left knee became very, very painful, and he presented to the [facility]. Upon presentation to the emergency room, patient was found to have a large effusion inside of his left knee which was tapped. Tap results reveal 97,000 white cells with 98% polyethylene and positive crystals. Patient does have a history of gout. Laboratory values in the emergency room showed a white count of 13.9 with a uric acid of 8.5. Patient is on no gouty medication, but has had a history of gout and kidney stones in the past. Today, the patient feels much better. He is afebrile, and vital signs are stable. PHYSICAL EXAMINATION: He has moderate effusion on his left knee. He has decreased range of motion. It is held in slight flexion. Good stability varus and valgus. No erythema. Calf is soft, nontender. Good motion of his ankles (he says the ankles are markedly improved, not bothering him much anymore). Good motion hips. Otherwise, neurovascularly intact. IMAGING: X-rays taken in the emergency room yesterday show just an effusion and some degenerative changes, but no fracture dislocation lesions. IMPRESSION: Gouty flare with an acute septic arthritis of his left knee. Patient was placed on broad spectrum antibiotics pending the tap results from the emergency room. Also, blood cultures were sent, as well. Patient will be taken to the operating room today for arthroscopic washout of the knee. We will narrow down the antibiotics to a more appropriate agent once the cultures come back and tell us sensitivity. Risks, benefits, and alternatives were discussed with the patient in great detail regarding the arthroscopy, and this patient would like to go forward. We will go forward this afternoon. AYESHA WILSON M.D. [id number]
[2016-07-11 14:17] LABS: RHEUMATOID ARTHRITITS FACTOR 26.1 IU/mL (0.0-13.9)
--- NOTE | 2016-07-11 19:14 | OP ---
DATE OF OPERATION: 07/10/2016 PREOPERATIVE DIAGNOSIS: Septic left knee. POSTOPERATIVE DIAGNOSIS: Septic left knee and medial and lateral meniscus tear and significant degenerative joint disease. PROCEDURE: Arthroscopy, left knee with partial medial and lateral meniscectomies and debridement throughout the knee. SURGEON: Dave Valenzuela MD ANESTHESIA: LMA. CLOSURE: 3-0 nylon. COMPLICATIONS: None. CONDITION: Stable condition. DESCRIPTION OF PROCEDURE: The patient was taken to the operating room on July 10, 2016. General anesthesia via LMA was administered by the anesthesiologist. IV antibiotics had already been administered ongoing on the floor since his admission yesterday for septic arthritis. The left lower extremity was prepped and draped in the usual sterile fashion. The superolateral, mediolateral, and infrapatellar portal sites were infiltrated with 1% Xylocaine with epinephrine. The superolateral portal was made with a 15 blade followed by blunt trocar. The knee was aspirated, which revealed 30 mL of turbid fluid. This was sent to the lab for C and S. The mediolateral and infrapatellar portals were then made with a 15 blade followed by a blunt trocar. Scope was placed in the lateral infrapatellar portal and up into the suprapatellar pouch. There was a lot of fibrinous debris throughout the knee. This was washed out using the arthroscope and shaver. There were multiple punctate areas of white deposits. Whether that is from gout or from injections of cortisone in the past, is unclear, but this encased the entire knee. Anything that was easily removed with the shaver was done so. The medial compartment was entered. In the medial meniscus, there was a complex tear of the posterior horn. This was debrided back to smooth stable meniscal tissue using meniscal biter and arthroscopic shaver. There was some diffuse DJD in the medial femoral condyle and the medial tibial plateau as well. At 90-degrees, the ACL was visualized and found to be intact. In the figure 4 position, the lateral compartment was entered. The lateral meniscus was found to have a midportion complex tear. This was also debrided back to smooth stable meniscal tissue using meniscal biter and arthroscopic shaver. There was also some DJD in this area also that was cleaned using the shaver and debrided. The patella and the trochlea also had some grade 2-3 changes debrided using the shaver of any loose particular cartilage. The knee was irrigated with 9 L of fluid to washout the infectious process that was going on inside the knee. The portals were then closed using 3-0 nylon and 20 mL of 0.5% Marcaine was infused through the outflow portal prior to pulling the trocar. A sterile pressure dressing was placed over the knee. The patient was awakened from anesthesia and transferred to the recovery in stable condition without complication. ESTIMATED BLOOD LOSS: Negligible. Riccardo PINEDA/[id number]
[2016-07-12 00:06] LABS: PARV B19 IGM 0.1 index (0.0-0.8)
[2016-07-12] MEDS: PIPERACILLIN/TAZOB 3.375 GM 50 ML IVPB SCH (01:27)
[2016-07-12] MEDS: VANCOMYCIN 1 GRAM (PRE-DOCKED) 250 ML IVPB SCH (02:23)
[2016-07-12 05:49] VITALS: TEMP 98.4
[2016-07-12 08:29] VITALS: BP 118/68; PULSE 78
--- NOTE | 2016-07-12 08:47 | PN ---
Progress Note (short form) - Note Progress Note: Ortho Pt seen and examined s/p left knee arthroscopy with washout pod #2 Selected Entries 07/12/16 08:28 Temperature 98.4 F Pulse Rate 78 Respiratory 18 Rate Blood Pressure 118/68 Laboratory Tests 07/12/16 07:34 WBC Pending Hgb Pending Hct Pending Plt Count Pending dressing c/d/i, calf soft, nt rom 5-70, nvi Cultures from OR pending a/p PT wbat ROM as tolerated f/u cultures abx as per ID d/c pending cultures
[2016-07-12 08:49] LABS: BASOPHIL 0.2 % (0-2.0); EOSINOPHIL 0.3 % (0-4.5); MCH 28.9 pg (25.7-33.7); MCHC 34.2 g/dl (32.0-35.9); MEAN CELL VOLUME 84.5 fl (80-96); NEUTROPHILS 71.7 % (42.8-82.8); PLATELET COUNT 347 K/MM3 (134-434); RDW 12.6 % (11.9-15.9); WHITE BLOOD COUNT 12.5 K/mm3 (4.0-10.0)
--- NOTE | 2016-07-12 09:49 | PN ---
Progress Note, Physician History of Present Illness: No c/o L knee or ankle pain No fever/ chills Synovial fluid c/s no growth - Current Medication List Current Medications: Active Medications Acetaminophen (Tylenol -) 650 mg PO Q4H PRN PRN Reason: FEVER OR PAIN Fentanyl (Sublimaze Injection -) 50 mcg IVPUSH [id number] PRN PRN Reason: PAIN Stop: 07/13/16 15:33 Last Admin: 07/10/16 15:55 Dose: 50 mcg Vancomycin HCl (Vancomycin (Pre-Docked)) 250 mls @ 200 mls/hr IVPB BID@0300, 1500 MARCUS Last Admin: 07/12/16 02:23 Dose: 200 mls/hr Piperacillin Sod/Tazobactam Sod (Zosyn 3.375gm Ivpb (Pre-Docked)) 50 mls @ 100 mls/hr IVPB Q8H-IV MARCUS PRN Reason: Protocol Last Admin: 07/12/16 01:27 Dose: 100 mls/hr Ondansetron HCl (Zofran Injection) 4 mg IVPB Q4H PRN PRN Reason: NAUSEA Oxycodone HCl (Roxicodone -) 5 mg PO Q4H PRN PRN Reason: PAIN Last Admin: 07/11/16 14:59 Dose: 5 mg - Objective Vital Signs: Vital Signs Temperature 98.4 F 07/12/16 08:28 Pulse Rate 78 07/12/16 08:28 Respiratory Rate 18 07/12/16 08:28 Blood Pressure 118/68 07/12/16 08:28 O2 Sat by Pulse Oximetry (%) 96 07/12/16 08:19 Constitutional: Yes: No Distress Eyes: Yes: Conjunctiva Clear Cardiovascular: Yes: Regular Rate and Rhythm, S1, S2 Respiratory: Yes: CTA Bilaterally Gastrointestinal: Yes: Normal Bowel Sounds, Soft. No: Tenderness Extremities: Yes: Other (+ L knee effusion No erythema/ warmth + L ankle swelling mild warmth no erythema) Labs: CBC, BMP 07/12/16 07:34 07/10/16 07:55 INR, PTT INR 1.23 (0.82-1.09) H 07/09/16 14:00 Assessment/Plan Probable gouty arthritis; doubt septic arthritis Polyarticular arthritis Synovial fluid c/s no growth Will D/C antibiotics, observe Treat for gout Outpatient rheumatology evaluation Discussed with Dr Valenzuela Discussed with by phone
[2016-07-12] MEDS ORDERED: COLCHICINE 0.6 MG TABLET (FP) PO ONE ×2 (11:00→12:00)
--- NOTE | 2016-07-12 11:04 | DS ---
Physical Exam: SUBJECTIVE: Patient seen and examined, reports feeling well, denies any pain to the left knee, denies any tactile fever. OBJECTIVE: patient is a 55 y/o male with a past medical history Renal Colic, Gout. Who presents to the emergency department with pain to bilateral ankles, limited mobility, L-knee pain and swelling x 1-2 weeks. Patient reports recent Flu-like symptoms x several days- resolved. Patient reports "rolling" his R- ankle, ignoring it. He then reports noting that his left foot and left knee was swollen, limited ROM/mobility, with erythema to his left foot. Patient reports he was "sweating" more at night, unsure if he had a temp. Patient denies SOB, dizziness, CP, AP, N/V/D, constipation, dysuria. ER course was notable for: (1) WBC 13.9 with L- shift (2) Uric Acid 8.5 (3) Arthrocentesis L- knee: +synvovial WBC/RBCs Vital Signs Period Temp Pulse Resp BP Sys/Luciano Pulse Ox Last 24 Hr 98.4 F-99.1 F 58-78 18-18 105-132/62-70 96-96 PHYSICAL EXAM GENERAL: The patient is awake, alert, and fully oriented, in no acute distress. HEAD: Normal with no signs of trauma. EYES: PERRL, extraocular movements intact, sclera anicteric, conjunctiva clear. No ptosis. ENT: Ears normal, nares patent, oropharynx clear without exudates, moist mucous membranes. NECK: Trachea midline, full range of motion, supple. LUNGS: Breath sounds equal, clear to auscultation bilaterally, no wheezes, no crackles, no accessory muscle use. HEART: Regular rate and rhythm, S1, S2 without murmur, rub or gallop. ABDOMEN: Soft, nontender, nondistended, normoactive bowel sounds, no guarding, no rebound, no hepatosplenomegaly, no masses. EXTREMITIES: 2+ pulses, warm, well-perfused, no edema. left lower extremity: surgical dressing in place clean dry and intact NEUROLOGICAL: Cranial nerves II through XII grossly intact. Normal speech, gait not observed. PSYCH: Normal mood, normal affect. SKIN: Warm, dry, normal turgor, no rashes or lesions noted LABS Laboratory Results - last 24 hr 07/10/16 07/12/16 07:55 07:34 WBC 12.5 H RBC 4.60 Hgb 13.3 Hct 38.9 MCV 84.5 MCHC 34.2 RDW 12.6 Plt Count 347 MPV 9.0 Neutrophils % 71.7 Lymphocytes % 19.8 D Monocytes % 8.0 Eosinophils % 0.3 D Basophils % 0.2 D Rheumatoid Arth Biomark 26.1 H PAPO Screen Negative Lyme Screen IgG & IgM <0.91 Parvovirus B19 IgG Ab 2.0 H Parvovirus B19 IgM Ab 0.1 Microbiology 07/09/16 14:15 Blood - Peripheral Venous Blood Culture - Final NO GROWTH AFTER 5 DAYS INCUBATION 07/09/16 14:00 Blood - Peripheral Venous Blood Culture - Final NO GROWTH AFTER 5 DAYS INCUBATION 07/10/16 15:30 Synovial Fluid - Knee Gram Stain - Final 07/10/16 15:30 Synovial Fluid - Knee Body Fluid Culture - Final NO GROWTH OF AEROBIC ORGANISMS AFTER 48 HOURS INCUBATION 07/10/16 15:30 Synovial Fluid - Knee Anaerobic Culture - Final NO ANAEROBES WERE ISOLATED 07/09/16 11:20 Synovial Fluid - Knee Gram Stain - Final 07/09/16 11:20 Synovial Fluid - Knee Body Fluid Culture - Final NO GROWTH OF AEROBIC ORGANISMS AFTER 48 HOURS INCUBATION 07/09/16 11:20 Synovial Fluid - Knee Anaerobic Culture - Final NO ANAEROBES WERE ISOLATED HOSPITAL COURSE: patient was admitted from the emergency department for septic arthritis. arthocentesis was performed in the emergency department, synovial fluid culture resulted as no growth. zosyn and vancomycin was administered throughout hospitalization. Dr Segundo, infectious disease physician was consulted and followed. Dr valenzuela (orthopedist) was consulted left knee arthroscopy with washout was performed on 07/10/16. Date of Admission:07/09/16 Date of Discharge: 07/12/16 Minutes to complete discharge: 45 Discharge Summary Reason For Visit: SEPTIC KNEE Current Active Problems DVT prophylaxis (Acute) History of renal colic (Acute) Knee pain (Acute) Septic joint of left knee joint (Acute) Condition: Improved - Instructions Diet, Activity, Other Instructions: resume regular diet you were given the first dose of colchine today, restart colchine tommorow morning take colchine as prescribed, please take colchine with food weight bear upon left knee as tolerated please follow up with Dr Valenzuela within 1 week please follow up with the rhemeumatologist and your primary care physician within 2 weeks if fever or redness to the left knee develops please return to the emergency department Referrals: Anuel Russell MD [Staff Physician] - Oseas Uribe [Primary Care Provider] - Disposition: HOME - Home Medications Comprehensive Discharge Medication List: Ambulatory Orders NK [No Known Home Medication] 07/09/16 This patient is new to me today: No Emergency Visit: Yes ED Registration Date: 07/09/16 Care time: The patient presented to the Emergency Department on the above date and was hospitalized for further evaluation of their emergent condition. Critical Care patient: No - Discharge Referral Referred to [facility] Med P.C.: No
--- NOTE | 2016-07-12 14:00 | EKG ---
Test Reason : Blood Pressure : / mmHG Vent. Rate : 074 BPM Atrial Rate : 074 BPM P-R Int : 162 ms QRS Dur : 098 ms QT Int : 396 ms P-R-T Axes : 016 -18 001 degrees QTc Int : 439 ms NORMAL SINUS RHYTHM INCOMPLETE RIGHT BUNDLE BRANCH BLOCK MODERATE VOLTAGE CRITERIA FOR LVH, MAY BE NORMAL VARIANT NONSPECIFIC ST AND T WAVE ABNORMALITY WHEN COMPARED WITH ECG OF 05-FEB-2014 09:12, INCOMPLETE RIGHT BUNDLE BRANCH BLOCK IS NOW PRESENT Confirmed by MD JUAN CARLOS, AQUILES ([id number]) on 07/12/2016 2:00:11 PM Referred By: SIDDHARTH Confirmed By:AQUILES RANGEL MD
== END 2016-07-12 14:03 | disposition home or self-care (01) | DRG 489 ==
LOC: FER 09:08 → FM/S 15:14 → OBSVTOIN 15:20 → FM/S 15:47
PROVIDERS: ADMIT Internal Medicine; ATTEND Nurse Practitioner Family
PROC: 0S9D3ZZ Drainage of Left Knee Joint, Percutaneous Approach (ICD-10-PCS; principal; 2016-07-09)
PROC: 0SBD4ZZ Excision of Left Knee Joint, Percutaneous Endoscopic Approach (ICD-10-PCS; 2016-07-10)
PROC: 0SBD4ZZ Excision of Left Knee Joint, Percutaneous Endoscopic Approach (ICD-10-PCS; 2016-07-10)
DX: M00.9 Pyogenic arthritis, unspecified (principal); M10.9 Gout, unspecified; I45.19 Other right bundle-branch block; E03.9 Hypothyroidism, unspecified; M13.0 Polyarthritis, unspecified; Z87.891 Personal history of nicotine dependence; Z87.442 Personal history of urinary calculi
CPT/HCPCS: 36415; 73562-TC-LT; 73630-TC-LT; 80048; 80053; 82150; 82945; 83615; 84157; 84550; 85025; 85610; 85651; 86038; 86140; 86431; 86618; 86747; 86850; 86900; 86901; 87040; 87070; 87075; 87205; 89051; 89060; 93005; 94760; 97116-GP; 97161-GP; 99285-25; G0378

== ENCOUNTER 2020-06-25 07:58 | Emergency (ER) | payer BC, OTHER ==
[2020-06-25 08:04] VITALS: BP 130/87; PULSE 82; TEMP 98.1; BMI 30.3
[2020-06-25] MEDS ORDERED: LIDOCAINE 5% TOPICAL PATCH TP ONE (08:15)
[2020-06-25] MEDS ORDERED: KETOROLAC TROMETHAMINE 60 MG/2 ML VIAL IM ONE (08:15)
[2020-06-25] MEDS ORDERED: KETOROLAC TROMETHAMINE 30 MG/1 ML VIAL ONE (08:36)
[2020-06-25] MEDS ORDERED: LIDOCAINE 5% TOPICAL PATCH ONE (08:36)
== END 2020-06-25 09:29 | disposition home or self-care (01) ==
LOC: JER 07:58
PROC: 3E0233Z Introduction of Anti-inflammatory into Muscle, Percutaneous Approach (ICD-10-PCS; principal; 2020-06-25)
DX: M25.512 Pain in left shoulder (principal); M54.2 Cervicalgia
CPT/HCPCS: 72040-TC; 73030-TC-LT-FY; 99284-25